=== PATIENT | female | born 1970 | race Caucasian/White ===

== ENCOUNTER 2025-02-27 22:51 | Emergency (ER) | payer MEDICARE ==
[~2025-02-27] VITALS: Ht 165.1 cm; Wt 68.0 kg
[~2025-02-27 22:51] MED LIST: ALDACTONE25 MG PO; ASPIRIN EC81 MG PO; CRESTOR10 MG PO; FAMOTIDINE20 MG PO; HYDROXYZINE HCL10 MG PO; LISINOPRIL10 MG PO; LOPRESSOR25 MG PO; METHOCARBAMOL750 MG PO; PLAVIX75 MG PO; Sacubitril/Valsartan 24MG/26MG PO; TRAZODONE HCL100 MG PO
[2025-02-27 22:55] VITALS: PULSE 81; RESP 16; TEMP 98.6
[2025-02-27 23:09] LABS: BASOPHILS # (AUTO) 0.1 (0.0-0.1); EOSINOPHILS # (AUTO) 0.3 (0.0-0.4); EOSINOPHILS % 2.8 % (0.0-6.0); HEMOGLOBIN 13.4 g/dL (12.0-16.0); LYMPHOCYTES % 38.8 % (18.0-39.1); MEAN CORPUSCULAR HEMOGLOBIN 30.2 pg (28-32); MEAN CORPUSCULAR HGB CONC 32.7 g/dL (31-35); MEAN CORPUSCULAR VOLUME 92.6 fL (81-99); MONOCYTES # (AUTO) 0.7 (0.2-0.8); MONOCYTES % 6.4 % (4.4-11.3); NEUTROPHILS # (AUTO) 5.2 (2.1-6.9); NEUTROPHILS % 50.9 % (38.7-80.0); PLATELET COUNT 234 x10e3/uL (140-360); RED BLOOD COUNT 4.43 x10e6/uL (3.6-5.1); RED CELL DISTRIBUTION WIDTH 13.1 % (11.7-14.4); WHITE BLOOD COUNT 10.26 x10e3/uL (4.8-10.8)
[2025-02-27 23:26] LABS: ALBUMIN 3.6 g/dL (3.5-5.0); ALBUMIN/GLOBULIN RATIO 1.3 (0.8-2.0); BILIRUBIN,TOTAL 0.2 mg/dL (0.2-1.2); CALCIUM 8.7 mg/dL (8.4-10.2); CREATININE, SERUM 1.05 mg/dL (0.57-1.11); TOTAL PROTEIN 6.3 g/dL (6.5-8.1)
[2025-02-27] MEDS: METOCLOPRAMIDE HCL 10 MG/2ML VIAL IV STA (23:34)
[2025-02-27] MEDS: KETOROLAC TROMETHAMINE 30 MG/ML VIAL IV STA (23:35)
[2025-02-27] MEDS: DIPHENHYDRAMINE HCL INJ 50 MG/ML VIAL IV STA (23:35)
[2025-02-27] MEDS: METHYLPREDNISOLONE SOD SUCC 125 MG/2ML VIAL IV STA (23:35)
[2025-02-27 23:36] LABS: TROPONIN I < 0.05 ng/mL (0.0-0.40)
[2025-02-27] MEDS: SODIUM CHLORIDE 0.9% 1000ML 1,000 ML IV STA (23:36)
[2025-02-27 23:45] LABS: AMPHETAMINES SCREEN,URINE NEGATIVE (NEGATIVE); BENZODIAZEPINES SCREEN,URINE NEGATIVE (NEGATIVE); CANNABINOIDS SCREEN,URINE POSITIVE (NEGATIVE); COCAINE SCREEN,URINE NEGATIVE (NEGATIVE); METHADONE SCREEN, URINE NEGATIVE (NEGATIVE); OPIATES SCREEN,URINE NEGATIVE (NEGATIVE); PHENCYCLIDINE SCREEN,URINE NEGATIVE (NEGATIVE)
[2025-02-27 23:48] LABS: BILIRUBIN,URINE NEGATIVE (NEGATIVE); CLARITY,URINE SL CLOUDY (CLEAR); COLOR,URINE YELLOW (YELLOW); GLUCOSE, URINE NEGATIVE (NEGATIVE); KETONES,URINE NEGATIVE (NEGATIVE); LEUKOCYTE ESTERASE ,URINE NEGATIVE (NEGATIVE); NITRITE,URINE NEGATIVE (NEGATIVE); PH,URINE 5.5 (5 - 7); PROTEIN,URINE DIPSTICK TRACE (NEGATIVE); URINE UROBILINOGEN 1 mg/dL (0.2 - 1)
[2025-02-27 23:56] LABS: BACTERIA,URINE MODERATE /HPF; EPITHELIAL CELLS,URINE MODERATE /LPF
[2025-02-28 01:20] VITALS: BP 133/71; PULSE 76; RESP 18; TEMP 98; O2SAT 98
[2025-02-28 01:53] LABS: CREATINE KINASE 131 IU/L (29-168)
== END 2025-02-28 01:27 | disposition home or self-care (01) ==
LOC: ER 22:55
DX: R51.9 Headache, unspecified (principal); I10 Essential (primary) hypertension; E78.5 Hyperlipidemia, unspecified; I25.10 Atherosclerotic heart disease of native coronary artery without angina pectoris; R94.31 Abnormal electrocardiogram [ECG] [EKG]; I25.2 Old myocardial infarction; Z95.5 Presence of coronary angioplasty implant and graft; Z95.810 Presence of automatic (implantable) cardiac defibrillator
CPT/HCPCS: 36415; 70450; 71045; 80053; 80307; 81001; 82550; 83690; 83880; 84484; 85025; 93005; 99284; J1200; J1885; J2765; J2919; J7030